=== PATIENT | female | born 1950 | race Caucasian/White ===

== ENCOUNTER 2018-07-29 14:58 | Day surgery (SDC) | payer MEDICARE, OTHER, SELFPAY ==
[2018-07-29 15:23] VITALS: BP 122/59; PULSE 72; RESP 16; TEMP 36.5; O2SAT 98; BMI 27.8
[2018-07-29] MEDS: SODIUM CHLORIDE 0.9% 1,000 ML 200 ML IV (15:30)
--- NOTE | 2018-07-29 16:23 | PM.HP.1 ---
History of Present Illness Date Patient Seen: 07/29/18 Time Patient Seen: 16:23 Chief complaint: [id number] Narrative: Very pleasant and healthy 68-year-old lady here for screening colonoscopy. She denies any problems or symptoms related to the function of her GI tract. She reports her last colonoscopy was at least 6 or 7 years ago. She is having a little bit of abdominal pain way up high on the left side at times that it is not consistent and not new. About 6 years ago she did have an inflamed diverticulum noted at 20 cm and a very small sessile polyp noted at 80 cm. Patient History Family & Social History Family History: Reviewed 07/29/18 by Hedy Robertson MD Social History: household members spouse Meds Home Medications Medication Instructions Recorded Confirmed Type levothyroxine 125 mcg PO DAILY 07/29/18 07/29/18 History Allergies Allergy/AdvReac Type Severity Reaction Status Date / Time No Known Drug Allergies Allergy Verified 07/29/18 15:16 Review of Systems Review of Systems All systems reviewed & are unremarkable except as noted in HPI and below Exam Vital Signs (past 8 hours): - 07/29/18 15:23 Temperature 97.7 F Pulse Rate 72 Respiratory Rate 16 Blood Pressure 122/59 L Pulse Oximetry 98 Oxygen Delivery Method Room Air Narrative Exam Narrative: Very pleasant lady who appears younger than her stated age. HEENT: Normocephalic and atraumatic, pupils equal round reactive to light accommodation with anicteric sclera Lungs: Clear to auscultation bilaterally Heart: Regular rate and rhythm without murmur rub or gallop Abdomen: Soft, nontender, active bowel sounds Extremities: Warm and well perfused without edema Assessment & Plan Plan: Assessment/Plan Narrative: Very pleasant 68-year-old lady with a personal history of colon polyps. We discussed risks and benefits of a screening colonoscopy and she has expressed a desire to complete the procedure today.
[2018-07-29] MEDS: fentaNYL 250 MCG/5 ML INJ 200 MCG IV (16:38)
[2018-07-29] MEDS: MIDAZOLAM 5 MG/5 ML VIAL IV (16:38)
[2018-07-29 16:46] VITALS: BP 95/57; PULSE 74; RESP 11; TEMP 36.2; O2SAT 98
--- NOTE | 2018-07-29 16:47 | PM.OP.1 ---
Operative Date/Time/Diagnoses Date of procedure: 07/29/18 Time of procedure: 16:47 Pre-op diagnosis: Screening Personal history of colon polyps Post-op diagnosis: same Procedure & Clinicians Procedure: Colonoscopy to the cecum Same procedure as scheduled: Yes Indications: Last colonoscopy 6 years ago Surgeon: Hedy Robertson Anesthesia Type: Sedation (Fentanyl and Versed) Operative Notes Findings: 1. Excellent prep 2. No polyps or mass lesions 3. No AV malformations 4. Mild diverticulosis limited to the sigmoid region 5. No specific cause for patient's intermittent left upper quadrant pain 6. Grade 1-2 internal hemorrhoids Closure Type: not applicable Specimen(s): none sent Procedure in detail: After obtaining informed consent, the patient was brought to the GI suite and placed in the left lateral decubitus position on the examination table. After placement of appropriate monitors, the patient was given incremental doses of Versed and Fentanyl until an appropriate level of sedation was achieved. A time out was held per [facility] protocol. A digital rectal examination was performed and did not reveal any masses or obstructing lesions. The colonoscope was gently passed into the patient's anus and the entire colon navigated to the level of the cecum with minimal difficulty. Once in the cecum, the scope was withdrawn being sure to go before and beyond all mucosal folds and prominences and get an excellent examination. The findings are noted above. At the level of the rectal vault, the scope was retroflexed and the internal anal canal was examined. The scope was straightened and air aspirated from the colon. The instrument was removed from the patient's body and the procedure was concluded. The patient was allowed to awaken from sedation without difficulty and taken to the post-anesthesia care unit in good condition. Total sedation time 25 minutes Total withdrawl time 11 minutes 51 seconds Complications: none Condition: stable Disposition: PACU Plan for aftercare: 1. Discharge to home 2. Plan for next colonoscopy in 5 years or as clinically indicated
[2018-07-29 16:57] VITALS: BP 91/57; PULSE 68; PULSE 81; RESP 11; RESP 16; O2SAT 96
--- NOTE | 2018-07-29 17:00 | SUR.PHASEI ---
stable alexis stay, to opd.
[2018-07-29 17:02] VITALS: BP 100/64; PULSE 85; RESP 13; TEMP 36.2; O2SAT 96
[2018-07-29 17:15] VITALS: BP 103/68; PULSE 68; RESP 16; O2SAT 97
--- NOTE | 2018-07-29 19:07 | SUR.PHASEII ---
Late note: Unable to document IVF total. Pt rec'd 800 ml NS and also did drink about 240ml of water prior to discharge.
== END 2018-07-29 17:25 | disposition home or self-care (01) ==
PROVIDERS: Visit Provider Surgery
PROC: 0DJD8ZZ Inspection of Lower Intestinal Tract, Via Natural or Artificial Opening Endoscopic (ICD-10-PCS; CPT 45378; principal; 2018-07-29 16:00)
DX: Z86.010 Personal history of colon polyps (principal); K57.30 Diverticulosis of large intestine without perforation or abscess without bleeding; K64.1 Second degree hemorrhoids
CPT/HCPCS: G0105; 99152; 99153; J2250; J3010